=== PATIENT | female | born 1980 | race African-American/Black ===

== ENCOUNTER 2021-04-09 17:52 | Emergency (ER) | payer OTHER ==
[~2021-04-09] VITALS: Ht 165.1 cm; Wt 65.8 kg
--- NOTE | 2021-04-09 17:52 | NUR ---
PT BIBA VIA [facility] ACCOMPANIED BY [facility].
[2021-04-09 18:04] VITALS: BP 126/82
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
[2021-04-09] MEDS ORDERED: HYDROcodone/APAP 5/325 MG 1 TAB TAB PO ONE ×2 (18:20→19:50)
--- NOTE | 2021-04-09 19:31 | NUR ---
Dr. Duggan examining patient.
--- NOTE | 2021-04-09 19:44 | NUR ---
EKG PERFORMED AT BEDSIDE. EKG READS SINUS TACHYCARDIA @ 104
[2021-04-09 20:10] VITALS: BP 120/78
--- NOTE | 2021-04-09 20:10 | NUR ---
PATIENT BIB [facility]. PATIENT EXAMINED BY DR. CORRIGAN. PATIENT MEDICALLY CLEARED AND RELEASED IN CUSTODY IN STABLE CONDITION. ORIGINAL PRE-BOOK FORM GIVEN TO OFFICER BRITTANY #[id number].
== END 2021-04-09 20:10 ==
LOC: MED 17:52
DX: G89.29 Other chronic pain (principal); M54.2 Cervicalgia; R07.9 Chest pain, unspecified; M54.9 Dorsalgia, unspecified
CPT/HCPCS: 93005; 99283